=== PATIENT | female | born 1945 | race Caucasian/White ===

== ENCOUNTER 2018-06-18 11:41 | Inpatient (IN) | payer OTHER ==
[2018-06-18] MEDS: SODIUM CHLORIDE 0.9% 1L BAG IV* (12:39)
[2018-06-18] MEDS: CEFEPIME 2GM/50 ML (PMX) 50 ML IVPB (12:41)
[2018-06-18] MEDS: ACETAMINOPHEN 325 MG TAB PO (12:43)
[2018-06-18 12:47] LABS: ADD MAN DIFF? NO
[2018-06-18 12:57] LABS: BASOPHILS % 0.1 % (0.0-2.0); HEMATOCRIT 45.5 % (37.0-47.0); HEMOGLOBIN 15.1 g/dl (12.0-16.0); LYMPHOCYTES # 0.7 10^3/ul (0.8-2.9); LYMPHOCYTES % 4.6 % (15.0-51.0); MEAN CORPUSCULAR HEMOGLOBIN 30.9 pg (29.0-33.0); MEAN CORPUSCULAR HGB CONC 33.2 g/dl (32.0-37.0); MONOCYTE # 1.2 10^3/ul (0.3-0.9); MONOCYTES % 8.3 % (0.0-11.0); NEUTROPHIL # 12.1 10^3/ul (1.6-7.5); NEUTROPHILS % 86.6 % (39.0-77.0); PLATELET COUNT 225 10^3/UL (140-415); RED BLOOD COUNT 4.89 10^6/ul (4.20-5.40)
[2018-06-18 13:01] LABS: ADD UMIC YES; UR ASCORBIC ACID NEGATIVE (NEGATIVE); UR BILIRUBIN (Dip) NEGATIVE (NEGATIVE); UR BLOOD (Dip) 2+ mg/dL (NEGATIVE); UR CLARITY CLEAR (CLEAR); UR COLOR YELLOW (YELLOW); UR GLUCOSE (Dip) 1+ mg/dL (NEGATIVE); UR KETONES (Dip) 1+ mg/dL (NEGATIVE); UR LEUKOCYTE ESTERASE (Dip) NEGATIVE Leu/ul (NEGATIVE); UR MUCUS FEW /HPF (NONE SEEN); UR NITRITE (Dip) NEGATIVE (NEGATIVE); UR RBC 7 /HPF (0-5); UR SPECIFIC GRAVITY (Dip) 1.019 (1.003-1.030); UR TOTAL PROTEIN (Dip) 2+ mg/dl (NEGATIVE); UR UROBILINOGEN (Dip) NEGATIVE (NEGATIVE); UR WBC 2 /HPF (0-5)
[2018-06-18 13:12] LABS: ANION GAP 15 (8-16); BLOOD UREA NITROGEN 16 mg/dl (7-20); CALCIUM 9.7 mg/dl (8.4-10.2); CARBON DIOXIDE 29 mmol/L (21-31); CHLORIDE 102 mmol/L (97-110); CREATININE 0.98 mg/dl (0.44-1.00); GLUCOSE 140 mg/dl (70-220); SODIUM 142 mmol/L (135-144)
[2018-06-18 13:13] LABS: ALANINE AMINOTRANSFERASE 18 IU/L (13-69); ALBUMIN 4.8 g/dl (3.3-4.9); ALKALINE PHOSPHATASE 83 IU/L (42-121); ASPARTATE AMINO TRANSFERASE 45 IU/L (15-46); BILIRUBIN,INDIRECT 1.4 mg/dl (0-1.1); BILIRUBIN,TOTAL 1.4 mg/dl (0.2-1.3); LIPASE 69 U/L (23-300); TOTAL PROTEIN 8.9 g/dl (6.1-8.1)
[2018-06-18 13:17] LABS: INR 1.08; PROTIME 14.1 Sec (11.9-14.9); PT RATIO 1.1
[2018-06-18 13:18] LABS: PARTIAL THROMBOPLASTIN TIME 28.3 Sec (23.0-35.0)
[2018-06-18 13:23] LABS: TROPONIN-I 0.029 ng/ml (0.000-0.120)
[2018-06-18] MEDS: VANCOMYCIN 1 GM (PMX) 250 ML IVPB (13:47)
[2018-06-18] MEDS ORDERED: ACETAMINOPHEN 325 MG TAB PO (14:00)
[2018-06-18] MEDS ORDERED: ONDANSETRON 4 MG INJ IV ×2 (14:00→15:00)
[2018-06-18] MEDS ORDERED: NACL 0.9% 3 ML SYG IV (15:00)
[2018-06-18 16:47] LABS: LACTIC ACID 1.4 mmol/L (0.5-2.0)
[2018-06-18 16:58] LABS: LACTIC ACID 1.4 mmol/L (0.5-2.0)
[2018-06-18] MEDS: DEXTROSE 5%-0.45% NACL 1,000 ML IV (17:34)
[2018-06-18] MEDS: HYDROCODONE/APAP (5/325) TAB PO (18:41)
[2018-06-18] MEDS: PIPER-TAZO 3.375 GM IV (PMX) 100 ML IVPB (20:13)
[2018-06-19] MEDS: PIPER-TAZO 3.375 GM IV (PMX) 100 ML IVPB ×4 (01:51→19:35)
[2018-06-19] MEDS: morphine 2 MG INJ IV ×4 (01:53→22:14)
[2018-06-19 05:14] LABS: ADD MAN DIFF? NO; BASOPHILS % 0.3 % (0.0-2.0); EOSINOPHILS # 0.1 10^3/ul (0.0-0.5); EOSINOPHILS % 0.7 % (0.0-7.0); HEMATOCRIT 44.2 % (37.0-47.0); HEMOGLOBIN 14.1 g/dl (12.0-16.0); LYMPHOCYTES % 8.3 % (15.0-51.0); MEAN CORPUSCULAR HEMOGLOBIN 30.1 pg (29.0-33.0); MEAN CORPUSCULAR HGB CONC 31.9 g/dl (32.0-37.0); MEAN CORPUSCULAR VOLUME 94.2 fl (82.0-101.0); NEUTROPHIL # 9.8 10^3/ul (1.6-7.5); NEUTROPHILS % 82.2 % (39.0-77.0); PLATELET COUNT 185 10^3/UL (140-415); RED BLOOD COUNT 4.69 10^6/ul (4.20-5.40); RED CELL DISTRIBUTION WIDTH 13.4 % (11.5-14.5)
[2018-06-19 05:14] LABS: WHITE BLOOD COUNT 11.9 10^3/ul (4.8-10.8)
[2018-06-19 05:38] LABS: HEMOGLOBIN A1C 5.2 % (0-5.9)
[2018-06-19 05:45] LABS: ALANINE AMINOTRANSFERASE 34 IU/L (13-69); ALBUMIN 3.2 g/dl (3.3-4.9); ALBUMIN/GLOBULIN RATIO 0.86; ALKALINE PHOSPHATASE 66 IU/L (42-121); ANION GAP 13 (8-16); ASPARTATE AMINO TRANSFERASE 33 IU/L (15-46); BILIRUBIN,INDIRECT 2.2 mg/dl (0-1.1); BILIRUBIN,TOTAL 2.2 mg/dl (0.2-1.3); BLOOD UREA NITROGEN 12 mg/dl (7-20); CALCIUM 8.9 mg/dl (8.4-10.2); CARBON DIOXIDE 30 mmol/L (21-31); CHLORIDE 105 mmol/L (97-110); CHOL/HDL RATIO 3.2 RATIO; CHOLESTEROL 133 mg/dl (100-200); CREATININE 1.11 mg/dl (0.44-1.00); GLUCOSE 119 mg/dl (70-220); HDL CHOLESTEROL 41 mg/dl (33-92); LDL CHOLESTEROL,CALCULATED 77 mg/dl; MAGNESIUM 2.2 mg/dl (1.7-2.5); PHOSPHORUS 2.8 mg/dl (2.5-4.9); POTASSIUM 3.9 mmol/L (3.5-5.1); SODIUM 144 mmol/L (135-144); TOTAL PROTEIN 6.9 g/dl (6.1-8.1); TRIGLYCERIDES 77 mg/dl (0-149)
[2018-06-19] MEDS: DEXTROSE 5%-0.45% NACL 1,000 ML IV ×2 (06:16→20:32)
[2018-06-19] MEDS: PANTOPRAZOLE 40 MG INJ IV (06:16)
[2018-06-19] MEDS: HYDROCODONE/APAP (5/325) TAB PO (20:33)
[2018-06-20] MEDS: PIPER-TAZO 3.375 GM IV (PMX) 100 ML IVPB ×4 (01:56→20:06)
[2018-06-20] MEDS: PANTOPRAZOLE 40 MG INJ IV (06:01)
[2018-06-20] MEDS: morphine 2 MG INJ IV (08:46)
[2018-06-20] MEDS: DEXTROSE 5%-0.45% NACL 1,000 ML IV ×3 (09:00→22:20)
[2018-06-21] MEDS: PIPER-TAZO 3.375 GM IV (PMX) 100 ML IVPB ×4 (00:09→21:40)
[2018-06-21] MEDS: morphine 2 MG INJ IV (00:12)
[2018-06-21 05:26] LABS: ADD MAN DIFF? NO
[2018-06-21 05:32] LABS: BASOPHIL # 0.1 10^3/ul (0.0-0.1); BASOPHILS % 0.6 % (0.0-2.0); EOSINOPHILS # 0.5 10^3/ul (0.0-0.5); EOSINOPHILS % 5.1 % (0.0-7.0); HEMATOCRIT 37.2 % (37.0-47.0); HEMOGLOBIN 12.2 g/dl (12.0-16.0); LYMPHOCYTES # 1.2 10^3/ul (0.8-2.9); LYMPHOCYTES % 13.8 % (15.0-51.0); MEAN CORPUSCULAR HGB CONC 32.8 g/dl (32.0-37.0); MEAN CORPUSCULAR VOLUME 94.4 fl (82.0-101.0); MEAN PLATELET VOLUME 12.8 fl (7.4-10.4); MONOCYTE # 0.7 10^3/ul (0.3-0.9); MONOCYTES % 7.9 % (0.0-11.0); NEUTROPHIL # 6.4 10^3/ul (1.6-7.5); NEUTROPHILS % 72.3 % (39.0-77.0); PLATELET COUNT 174 10^3/UL (140-415); RED BLOOD COUNT 3.94 10^6/ul (4.20-5.40); RED CELL DISTRIBUTION WIDTH 13.2 % (11.5-14.5)
[2018-06-21 05:32] LABS: WHITE BLOOD COUNT 8.9 10^3/ul (4.8-10.8)
[2018-06-21 05:44] LABS: ALANINE AMINOTRANSFERASE 51 IU/L (13-69); ALBUMIN 2.7 g/dl (3.3-4.9); ALBUMIN/GLOBULIN RATIO 0.81; ALKALINE PHOSPHATASE 95 IU/L (42-121); ANION GAP 10 (8-16); ASPARTATE AMINO TRANSFERASE 47 IU/L (15-46); BLOOD UREA NITROGEN 13 mg/dl (7-20); CALCIUM 8.5 mg/dl (8.4-10.2); CARBON DIOXIDE 31 mmol/L (21-31); CHLORIDE 103 mmol/L (97-110); CREATININE 1.07 mg/dl (0.44-1.00); GLUCOSE 92 mg/dl (70-220); POTASSIUM 3.4 mmol/L (3.5-5.1); SODIUM 141 mmol/L (135-144)
[2018-06-21] MEDS: PANTOPRAZOLE 40 MG INJ IV (05:52)
[2018-06-21] MEDS ORDERED: EPHEDrine SULFATE 50 MG/5 ML SYG (07:00)
[2018-06-21] MEDS ORDERED: IOHEXOL 300MG/ML 30 ML BTL (15:17)
[2018-06-21] MEDS: INDOMETHACIN 50 MG SUPP PR (16:00)
[2018-06-21] MEDS ORDERED: MEPERIDINE 25 MG INJ IV (17:00)
[2018-06-21] MEDS ORDERED: HYDROmorphONE 1 MG/5 ML IV SYRINGE IV ×3 (17:00)
[2018-06-21] MEDS ORDERED: LABETALOL HCL 20MG INJ IV (17:00)
[2018-06-21] MEDS ORDERED: hydrALAzine 20 MG INJ IV (17:00)
[2018-06-21] MEDS ORDERED: ONDANSETRON 4 MG INJ IV (17:00)
[2018-06-21] MEDS ORDERED: DIPHENHYDRAMINE 50 MG INJ IV (17:00)
[2018-06-21] MEDS ORDERED: DEXAMETHASONE 4 MG/ML 1 ML INJ (17:06)
[2018-06-21] MEDS ORDERED: METOCLOPRAMIDE 10 MG INJ (17:06)
[2018-06-21] MEDS ORDERED: PROPOFOL 20 ML (17:06)
[2018-06-21] MEDS ORDERED: MIDAZOLAM 1 MG/ML 2 ML INJ (17:06)
[2018-06-21] MEDS ORDERED: SUCCINYLCHOLINE CHLORIDE 100 MG/5 ML SYG IV (17:06)
[2018-06-21] MEDS: DEXTROSE 5%-0.45% NACL 1,000 ML IV (18:05)
[2018-06-21] MEDS: POTASSIUM CHLORIDE 100 ML IVPB ×2 (18:09→21:22)
[2018-06-22] MEDS: DEXTROSE 5%-0.45% NACL 1,000 ML IV ×3 (01:00→20:23)
[2018-06-22] MEDS: PIPER-TAZO 3.375 GM IV (PMX) 100 ML IVPB ×4 (03:54→20:23)
[2018-06-22 04:52] LABS: ADD MAN DIFF? NO
[2018-06-22 04:57] LABS: WHITE BLOOD COUNT 4.5 10^3/ul (4.8-10.8)
[2018-06-22 04:57] LABS: ABNORMAL IP MESSAGE 1; BASOPHILS % 0.2 % (0.0-2.0); HEMATOCRIT 37.8 % (37.0-47.0); HEMOGLOBIN 12.5 g/dl (12.0-16.0); LYMPHOCYTES # 0.4 10^3/ul (0.8-2.9); LYMPHOCYTES % 9.1 % (15.0-51.0); MEAN CORPUSCULAR HEMOGLOBIN 30.9 pg (29.0-33.0); MEAN CORPUSCULAR HGB CONC 33.1 g/dl (32.0-37.0); MEAN CORPUSCULAR VOLUME 93.3 fl (82.0-101.0); MEAN PLATELET VOLUME 12.2 fl (7.4-10.4); MONOCYTE # 0.2 10^3/ul (0.3-0.9); NEUTROPHIL # 3.9 10^3/ul (1.6-7.5); NEUTROPHILS % 86.3 % (39.0-77.0); PLATELET COUNT 183 10^3/UL (140-415); RED BLOOD COUNT 4.05 10^6/ul (4.20-5.40)
[2018-06-22 05:03] LABS: POSITIVE DIFF @See below
[2018-06-22 05:21] LABS: MAGNESIUM 2.1 mg/dl (1.7-2.5)
[2018-06-22 05:29] LABS: ALANINE AMINOTRANSFERASE 57 IU/L (13-69); ALBUMIN 2.8 g/dl (3.3-4.9); ALBUMIN/GLOBULIN RATIO 0.77; ALKALINE PHOSPHATASE 142 IU/L (42-121); ANION GAP 13 (8-16); ASPARTATE AMINO TRANSFERASE 59 IU/L (15-46); BILIRUBIN,INDIRECT 1.1 mg/dl (0-1.1); BILIRUBIN,TOTAL 1.1 mg/dl (0.2-1.3); BLOOD UREA NITROGEN 14 mg/dl (7-20); CALCIUM 8.8 mg/dl (8.4-10.2); CARBON DIOXIDE 30 mmol/L (21-31); CHLORIDE 104 mmol/L (97-110); CREATININE 0.85 mg/dl (0.44-1.00); GLUCOSE 157 mg/dl (70-220); POTASSIUM 4.4 mmol/L (3.5-5.1); SODIUM 143 mmol/L (135-144); TOTAL PROTEIN 6.4 g/dl (6.1-8.1)
[2018-06-22] MEDS: PANTOPRAZOLE 40 MG INJ IV (06:01)
[2018-06-22] MEDS ORDERED: ROCURONIUM 50 MG INJ (07:00)
[2018-06-22] MEDS ORDERED: LIDOCAINE 2% (SDV) 5 ML INJ (07:00)
[2018-06-22] MEDS ORDERED: PROPOFOL 100 ML (15:54)
[2018-06-22] MEDS ORDERED: DEXAMETHASONE 4 MG/ML 1 ML INJ ×2 (16:28→17:29)
[2018-06-22] MEDS ORDERED: ACETAMINOPHEN 1000MG/100ML IV 100 ML (16:28)
[2018-06-22] MEDS ORDERED: ONDANSETRON 4 MG INJ (16:28)
[2018-06-22] MEDS ORDERED: hydrALAzine 20 MG INJ (16:36)
[2018-06-22] MEDS: LIDOCAINE 1% (MDV) 20 ML INJ (16:45)
[2018-06-22] MEDS: BUPIVACAINE 0.25%/EPI (SDV) 30 ML INJ (16:45)
[2018-06-22] MEDS ORDERED: SUGAMMADEX SODIUM 200 MG/2 ML VIAL IV (17:45)
[2018-06-22] MEDS ORDERED: DIPHENHYDRAMINE 50 MG INJ IV (18:00)
[2018-06-22] MEDS ORDERED: EPHEDrine SULFATE 50 MG/5 ML SYG IV (18:00)
[2018-06-22] MEDS ORDERED: LABETALOL HCL 20MG INJ IV (18:00)
[2018-06-22] MEDS ORDERED: MIDAZOLAM 1 MG/ML 2 ML INJ IV (18:00)
[2018-06-22] MEDS ORDERED: FENTAnyl 50 MCG/ML VIAL IV ×2 (18:00)
[2018-06-22] MEDS ORDERED: METOCLOPRAMIDE 10 MG INJ IV (18:00)
[2018-06-22] MEDS ORDERED: hydrALAzine 20 MG INJ IV (18:00)
[2018-06-22] MEDS ORDERED: ALBUTEROL 0.083% (NEB) 2.5 MG/3 ML AMP HHN (18:00)
[2018-06-22] MEDS ORDERED: KETOROLAC 30 MG INJ IV (18:00)
[2018-06-22] MEDS ORDERED: HYDROmorphONE 1 MG/5 ML IV SYRINGE IV ×2 (18:00→18:18)
[2018-06-22] MEDS ORDERED: OXYCODONE/ACETAMINOPHEN (5/325) TAB PO ×2 (18:00)
[2018-06-22] MEDS ORDERED: MEPERIDINE 25 MG INJ IV (18:00)
[2018-06-22] MEDS: HYDROmorphONE 1 MG/5 ML IV SYRINGE IV ×3 (18:31→18:43)
[2018-06-22] MEDS: ONDANSETRON 4 MG INJ IV (18:40)
[2018-06-22] MEDS: FENTAnyl 50 MCG/ML VIAL IV (19:00)
[2018-06-23] MEDS: morphine 2 MG INJ IV ×3 (00:17→10:28)
[2018-06-23] MEDS: PIPER-TAZO 3.375 GM IV (PMX) 100 ML IVPB ×4 (01:35→19:40)
[2018-06-23 05:01] LABS: ADD MAN DIFF? NO
[2018-06-23 05:11] LABS: ABNORMAL IP MESSAGE 1; BASOPHILS % 0.1 % (0.0-2.0); HEMATOCRIT 33.7 % (37.0-47.0); HEMOGLOBIN 10.9 g/dl (12.0-16.0); LYMPHOCYTES # 0.3 10^3/ul (0.8-2.9); LYMPHOCYTES % 4.4 % (15.0-51.0); MEAN CORPUSCULAR HEMOGLOBIN 30.5 pg (29.0-33.0); MEAN CORPUSCULAR HGB CONC 32.3 g/dl (32.0-37.0); MEAN CORPUSCULAR VOLUME 94.4 fl (82.0-101.0); MEAN PLATELET VOLUME 12.4 fl (7.4-10.4); MONOCYTE # 0.3 10^3/ul (0.3-0.9); MONOCYTES % 4.5 % (0.0-11.0); NEUTROPHIL # 6.5 10^3/ul (1.6-7.5); PLATELET COUNT 203 10^3/UL (140-415); RED BLOOD COUNT 3.57 10^6/ul (4.20-5.40); RED CELL DISTRIBUTION WIDTH 13.2 % (11.5-14.5)
[2018-06-23 05:11] LABS: WHITE BLOOD COUNT 7.1 10^3/ul (4.8-10.8)
[2018-06-23 05:21] LABS: POSITIVE DIFF @See below
[2018-06-23 05:22] LABS: NEUTROPHILS % 90.7 % (39.0-77.0)
[2018-06-23 05:28] LABS: MAGNESIUM 1.9 mg/dl (1.7-2.5)
[2018-06-23 05:28] LABS: PHOSPHORUS 3.7 mg/dl (2.5-4.9)
[2018-06-23 05:35] LABS: ALANINE AMINOTRANSFERASE 72 IU/L (13-69); ALBUMIN 2.5 g/dl (3.3-4.9); ALKALINE PHOSPHATASE 115 IU/L (42-121); ANION GAP 9 (8-16); ASPARTATE AMINO TRANSFERASE 89 IU/L (15-46); BILIRUBIN,INDIRECT 0.6 mg/dl (0-1.1); BILIRUBIN,TOTAL 0.6 mg/dl (0.2-1.3); BLOOD UREA NITROGEN 14 mg/dl (7-20); CALCIUM 8.7 mg/dl (8.4-10.2); CARBON DIOXIDE 29 mmol/L (21-31); CHLORIDE 106 mmol/L (97-110); GLUCOSE 162 mg/dl (70-220); SODIUM 140 mmol/L (135-144); TOTAL PROTEIN 5.6 g/dl (6.1-8.1)
[2018-06-23] MEDS: PANTOPRAZOLE 40 MG INJ IV (06:06)
[2018-06-23] MEDS: HYDROCODONE/APAP (5/325) TAB PO ×2 (09:08→20:25)
[2018-06-23] MEDS: DEXTROSE 5%-0.45% NACL 1,000 ML IV (11:29)
[2018-06-24] MEDS: PIPER-TAZO 3.375 GM IV (PMX) 100 ML IVPB ×4 (00:45→19:00)
[2018-06-24] MEDS: HYDROCODONE/APAP (5/325) TAB PO ×2 (04:38→12:17)
[2018-06-24 05:09] LABS: ADD MAN DIFF? NO
[2018-06-24 05:13] LABS: WHITE BLOOD COUNT 5.5 10^3/ul (4.8-10.8)
[2018-06-24 05:13] LABS: BASOPHILS % 0.4 % (0.0-2.0); EOSINOPHILS % 0.4 % (0.0-7.0); HEMATOCRIT 32.8 % (37.0-47.0); HEMOGLOBIN 10.6 g/dl (12.0-16.0); LYMPHOCYTES # 1.6 10^3/ul (0.8-2.9); LYMPHOCYTES % 29.6 % (15.0-51.0); MEAN CORPUSCULAR HEMOGLOBIN 30.5 pg (29.0-33.0); MEAN CORPUSCULAR HGB CONC 32.3 g/dl (32.0-37.0); MEAN CORPUSCULAR VOLUME 94.5 fl (82.0-101.0); MEAN PLATELET VOLUME 12.3 fl (7.4-10.4); MONOCYTE # 0.6 10^3/ul (0.3-0.9); MONOCYTES % 11.5 % (0.0-11.0); NEUTROPHIL # 3.2 10^3/ul (1.6-7.5); NEUTROPHILS % 57.7 % (39.0-77.0); PLATELET COUNT 197 10^3/UL (140-415); RED BLOOD COUNT 3.47 10^6/ul (4.20-5.40); RED CELL DISTRIBUTION WIDTH 13.6 % (11.5-14.5)
[2018-06-24] MEDS: PANTOPRAZOLE 40 MG INJ IV (05:24)
[2018-06-24 05:38] LABS: MAGNESIUM 1.9 mg/dl (1.7-2.5)
[2018-06-24 05:38] LABS: PHOSPHORUS 2.6 mg/dl (2.5-4.9)
[2018-06-24 05:48] LABS: ALANINE AMINOTRANSFERASE 65 IU/L (13-69); ALBUMIN 2.8 g/dl (3.3-4.9); ALBUMIN/GLOBULIN RATIO 0.96; ALKALINE PHOSPHATASE 112 IU/L (42-121); ANION GAP 6 (8-16); ASPARTATE AMINO TRANSFERASE 74 IU/L (15-46); BILIRUBIN,INDIRECT 0.6 mg/dl (0-1.1); BILIRUBIN,TOTAL 0.6 mg/dl (0.2-1.3); BLOOD UREA NITROGEN 13 mg/dl (7-20); CALCIUM 8.5 mg/dl (8.4-10.2); CARBON DIOXIDE 32 mmol/L (21-31); CHLORIDE 107 mmol/L (97-110); CREATININE 0.84 mg/dl (0.44-1.00); GLUCOSE 81 mg/dl (70-220); POTASSIUM 3.3 mmol/L (3.5-5.1); SODIUM 142 mmol/L (135-144); TOTAL PROTEIN 5.7 g/dl (6.1-8.1)
[2018-06-24] MEDS: POTASSIUM CHLORIDE (SR) 10 MEQ TAB PO (09:22)
== END 2018-06-24 20:50 | disposition home health service (06) | DRG 419 ==
LOC: E/R 11:41 → MS1 14:01
PROC: 0F798ZZ Dilation of Common Bile Duct, Via Natural or Artificial Opening Endoscopic (ICD-10-PCS; 2018-06-21 15:00)
PROC: 0FT44ZZ Resection of Gallbladder, Percutaneous Endoscopic Approach (ICD-10-PCS; principal; 2018-06-21 15:51)
PROC: 0FB04ZX Excision of Liver, Percutaneous Endoscopic Approach, Diagnostic (ICD-10-PCS; 2018-06-21 15:51)
DX: K80.01 Calculus of gallbladder with acute cholecystitis with obstruction (principal); I10 Essential (primary) hypertension; K21.9 Gastro-esophageal reflux disease without esophagitis; R19.8 Other specified symptoms and signs involving the digestive system and abdomen; R82.4 Acetonuria; R80.9 Proteinuria, unspecified
CPT/HCPCS: 36415; 71045; 74176; 74181; 74330; 76705; 80048; 80053; 80061; 80076; 81001; 83036; 83605; 83690; 83735; 84100; 84443; 84484; 85025; 85610; 85730; 87040; 87086; 88304; 88307; 88313; 93005; 96374; 96375; 99291-25